=== PATIENT | male | born 1990 | race Caucasian/White ===

== ENCOUNTER 2018-05-03 08:37 | Emergency (ER) | payer SELFPAY ==
[2018-05-03] MEDS ORDERED: CEPHALEXIN500 M1 PO (09:32)
[2018-05-03 09:45] VITALS: BP 141/83
== END 2018-05-03 09:51 | disposition home or self-care (01) ==
LOC: ED 08:37
DX: L03.032 Cellulitis of left toe (principal); L60.0 Ingrowing nail